=== PATIENT | male | born 1945 | race Caucasian/White ===

== ENCOUNTER 2022-08-05 09:14 | Emergency (ER) | payer SELFPAY ==
[2022-08-05] MEDS ORDERED: Acetaminophen 500 MG TAB ONE (09:31)
[2022-08-05 09:48] LABS: #Basophils 0.1 thou/uL (0.0-0.2); #Eosinphils 0.1 thou/uL (0.0-0.7); #Monocytes 1.1 thou/uL (0.11-0.59); %Basophils 0.6 % (0.0-1.0); %Eosinophils 0.8 % (0.0-10.0); %Lymphocytes 6.6 % (21.0-51.0); %Monocytes 7.4 % (0.0-10.0); %Neutrophils 84.6 % (42.0-75.0); Hemoglobin 13.8 g/dL (14.0-18.0); Mean Corpuscular HGB CONC 31.9 g/dL (32.0-36.0); Mean Corpuscular Hemoglobin 27.9 pg (27.0-31.0); Mean Corpuscular Volume 87.7 fl (78.0-98.0); Mean Platelet Volume 6.2 fL (7.4-10.4); Platelet Count 308 10x3/uL (130-400); RBC Distribution Width 13.8 % (11.5-14.5); Red Blood Cell (RBC) Count 4.94 mill/uL (4.70-6.10); White Blood Cell (WBC) Count 15.3 10x3/uL (4.8-10.8)
[2022-08-05 10:06] LABS: Anion Gap 17 mmol/L (10-20); BUN (Urea Nitrogen) 25 mg/dL (8.4-25.7); Calc. Creatinine Clearance 0 mL/min (70-130); Calcium 10.3 mg/dL (7.8-10.44); Carbon Dioxide 28 mmol/L (23-31); Chloride 94 mmol/L (98-107); Estimated GFR 40; Glucose 235 mg/dL (83-110); Potassium 5.1 mmol/L (3.5-5.1); Sodium 134 mmol/L (136-145)
[2022-08-05] MEDS ORDERED: Lidocaine 1% PF 5 ML VIAL ONE ×2 (10:15→10:32)
[2022-08-05] MEDS ORDERED: cefTRIAXone\\ROCEPHIN 2 GM VIAL ONE (10:54)
[2022-08-05] MEDS ORDERED: Sodium Chloride 0.9% 100 ML ONE (10:54)
[2022-08-05] MEDS ORDERED: Sodium Chloride 0.9% 250 ML 250 ML ONE (11:13)
[2022-08-05] MEDS ORDERED: Vancomycin 1 GM VIAL ONE (11:13)
[2022-08-05] MEDS ORDERED: Morphine 4 MG/ML VIAL ONE (12:30)
[2022-08-05 14:31] LABS: Synovial Fluid, Uric Acid 7.1 mg/dL (Not Available)
[2022-08-05 14:45] LABS: RBC Count-Automated (BF) 73282 /cu.mm; WBC/Nucleated-Auto (BF) 23891 /cu.mm
[2022-08-05 14:47] LABS: BF Color Red; Body Fluid Source Synovial Fluid; Clarity Cloudy/Turbid (Clear); Tube # EDTA
[2022-08-05 14:48] LABS: BF Segmented Neutrophils 83 %; Cell Count Non Hematic 13 %; Lymphocytes 4 %
[2022-08-07 00:59] LABS: Fluid, Protein 5.1 g/dL (Not Available)
== END 2022-08-05 12:41 | disposition short-term general hospital (02) ==
LOC: MADERS 09:14
DX: M25.561 Pain in right knee (principal); M25.461 Effusion, right knee; I25.2 Old myocardial infarction; J44.9 Chronic obstructive pulmonary disease, unspecified; I50.9 Heart failure, unspecified; E11.9 Type 2 diabetes mellitus without complications; Z86.73 Personal history of transient ischemic attack (TIA), and cerebral infarction without residual deficits
CPT/HCPCS: 20610; 36415; 80048; 82945; 83605; 84157; 84550; 84560; 85025; 85060; 85652; 86140; 87040; 87070; 87205; 89051; 89060; 96365; 96367; 96375; J0696; J2270; J3370; J3490; J7050

== ENCOUNTER 2022-08-20 18:34 | Inpatient (IN) | payer MEDICARE, OTHER ==
[2022-08-20] MEDS ORDERED: Lantus 1000 UNITS/10 ML VIAL SC SCH (21:30)
[2022-08-20] MEDS ORDERED: Apixaban 5 MG TAB PO SCH (21:30)
[2022-08-20] MEDS: HYDROcodone/Acetaminophen 7.5/325 mg Tablet PO PRN (21:52)
[2022-08-20] MEDS ORDERED: DULoxetine 30 MG CAP PO SCH (22:00)
[2022-08-20] MEDS ORDERED: HumaLOG 300 UNITS/3 ML VIAL SC SCH (22:00)
[2022-08-21] MEDS ORDERED: Lantiseptic Ointment 130 GM JAR TOP PRN (00:58)
[2022-08-21] MEDS ORDERED: Clotrimazole 1% Cream 15 GM TUBE TOP PRN (01:00)
[2022-08-21] MEDS ORDERED: HumaLOG 300 UNITS/3 ML VIAL SC SCH (09:00)
[2022-08-21] MEDS: Apixaban 5 MG TAB PO SCH ×2 (09:34→20:43)
[2022-08-21] MEDS: Aspirin 81 mg Enteric Coated Tablet PO SCH (09:34)
[2022-08-21] MEDS: Spironolactone 25 MG TAB PO SCH (09:34)
[2022-08-21] MEDS: Colchicine 0.6 MG TAB PO SCH (09:34)
[2022-08-21] MEDS: Furosemide 20 MG TAB PO SCH ×2 (09:34→14:34)
[2022-08-21] MEDS: Tamsulosin HCl 0.4 MG CAP PO SCH (09:35)
[2022-08-21] MEDS: Lantiseptic Ointment 130 GM JAR TOP SCH ×2 (09:35→20:46)
[2022-08-21] MEDS: Amiodarone 200 MG TAB PO SCH (09:35)
[2022-08-21] MEDS: Empagliflozin 25 MG TAB PO SCH (09:35)
[2022-08-21] MEDS: Clotrimazole 1% Cream 15 GM TUBE TOP SCH ×2 (09:36→20:46)
[2022-08-21] MEDS: LIRAGLUTIDE 0.6 MG/0.1 ML SC SCH (10:32)
[2022-08-21] MEDS: HYDROcodone/Acetaminophen 7.5/325 mg Tablet PO PRN ×2 (11:32→22:18)
[2022-08-21] MEDS ORDERED: DAPTOmycin 500 MG VIAL IVPB SCH (13:00)
[2022-08-21] MEDS: DAPTOmycin 500 MG in Sodium Chloride 0.9% 100 ML IVPB SCH (13:00)
[2022-08-21] MEDS: HumaLOG 300 UNITS/3 ML VIAL SC SCH (17:15)
[2022-08-21] MEDS: Lantus 1000 UNITS/10 ML VIAL SC SCH (20:44)
[2022-08-21] MEDS: DULoxetine 30 MG CAP PO SCH (20:44)
[2022-08-21] MEDS ORDERED: rOPINIRole HCl 0.25 MG TAB PO SCH (21:00)
[2022-08-22] MEDS: Empagliflozin 25 MG TAB PO SCH (08:19)
[2022-08-22] MEDS: HumaLOG 300 UNITS/3 ML VIAL SC SCH ×3 (08:19→16:43)
[2022-08-22] MEDS: Spironolactone 25 MG TAB PO SCH (08:19)
[2022-08-22] MEDS: Furosemide 20 MG TAB PO SCH ×2 (08:19→13:27)
[2022-08-22] MEDS: Tamsulosin HCl 0.4 MG CAP PO SCH (08:19)
[2022-08-22] MEDS: Apixaban 5 MG TAB PO SCH ×2 (08:19→20:46)
[2022-08-22] MEDS: Colchicine 0.6 MG TAB PO SCH (08:20)
[2022-08-22] MEDS: Aspirin 81 mg Enteric Coated Tablet PO SCH (08:20)
[2022-08-22] MEDS: Amiodarone 200 MG TAB PO SCH (08:20)
[2022-08-22] MEDS: Lantiseptic Ointment 130 GM JAR TOP SCH ×2 (08:21→20:48)
[2022-08-22] MEDS: Clotrimazole 1% Cream 15 GM TUBE TOP SCH ×2 (08:21→20:49)
[2022-08-22] MEDS: LIRAGLUTIDE 0.6 MG/0.1 ML SC SCH (08:22)
[2022-08-22] MEDS ORDERED: Ondansetron ODT 4 MG TAB PO SCH (09:45)
[2022-08-22] MEDS: HYDROcodone/Acetaminophen 7.5/325 mg Tablet PO PRN ×2 (09:57→20:50)
[2022-08-22 11:01] VITALS: BMI 31.6
[2022-08-22] MEDS: DAPTOmycin 500 MG in Sodium Chloride 0.9% 100 ML IVPB SCH (13:28)
[2022-08-22] MEDS: Acetaminophen 325 MG TAB PO PRN (17:30)
[2022-08-22] MEDS: Lantus 1000 UNITS/10 ML VIAL SC SCH (20:45)
[2022-08-22] MEDS: DULoxetine 30 MG CAP PO SCH (20:46)
[2022-08-22] MEDS: Melatonin 3 MG TAB PO PRN (20:46)
[2022-08-22] MEDS: rOPINIRole HCl 0.25 MG TAB PO SCH (20:46)
[2022-08-23] MEDS: Spironolactone 25 MG TAB PO SCH (08:04)
[2022-08-23] MEDS: Empagliflozin 25 MG TAB PO SCH (08:04)
[2022-08-23] MEDS: Furosemide 20 MG TAB PO SCH ×2 (08:04→13:08)
[2022-08-23] MEDS: Amiodarone 200 MG TAB PO SCH (08:04)
[2022-08-23] MEDS: Aspirin 81 mg Enteric Coated Tablet PO SCH (08:04)
[2022-08-23] MEDS: Tamsulosin HCl 0.4 MG CAP PO SCH (08:04)
[2022-08-23] MEDS: Clotrimazole 1% Cream 15 GM TUBE TOP SCH ×2 (08:05→20:44)
[2022-08-23] MEDS: Apixaban 5 MG TAB PO SCH ×2 (08:05→20:43)
[2022-08-23] MEDS: Lantiseptic Ointment 130 GM JAR TOP SCH ×2 (08:05→20:44)
[2022-08-23] MEDS: HumaLOG 300 UNITS/3 ML VIAL SC SCH ×3 (08:05→17:22)
[2022-08-23] MEDS: Colchicine 0.6 MG TAB PO SCH (08:05)
[2022-08-23] MEDS: LIRAGLUTIDE 0.6 MG/0.1 ML SC SCH (08:06)
[2022-08-23] MEDS: HYDROcodone/Acetaminophen 7.5/325 mg Tablet PO PRN ×2 (10:07→20:41)
[2022-08-23] MEDS: DAPTOmycin 500 MG in Sodium Chloride 0.9% 100 ML IVPB SCH (13:07)
[2022-08-23] MEDS: Acetaminophen 325 MG TAB PO PRN (17:20)
[2022-08-23] MEDS: rOPINIRole HCl 0.25 MG TAB PO SCH (20:41)
[2022-08-23] MEDS: DULoxetine 30 MG CAP PO SCH (20:42)
[2022-08-23] MEDS: Melatonin 3 MG TAB PO PRN (20:43)
[2022-08-23] MEDS: Lantus 1000 UNITS/10 ML VIAL SC SCH (20:44)
[2022-08-24 05:16] LABS: Platelet Count 212 10x3/uL (130-400)
[2022-08-24] MEDS: Aspirin 81 mg Enteric Coated Tablet PO SCH (08:34)
[2022-08-24] MEDS: Apixaban 5 MG TAB PO SCH ×2 (08:34→21:02)
[2022-08-24] MEDS: Colchicine 0.6 MG TAB PO SCH (08:34)
[2022-08-24] MEDS: Empagliflozin 25 MG TAB PO SCH (08:34)
[2022-08-24] MEDS: Spironolactone 25 MG TAB PO SCH (08:34)
[2022-08-24] MEDS: Tamsulosin HCl 0.4 MG CAP PO SCH (08:35)
[2022-08-24] MEDS: Amiodarone 200 MG TAB PO SCH (08:35)
[2022-08-24] MEDS: Furosemide 20 MG TAB PO SCH ×2 (08:35→14:36)
[2022-08-24] MEDS: HYDROcodone/Acetaminophen 7.5/325 mg Tablet PO PRN ×2 (08:36→21:03)
[2022-08-24] MEDS: HumaLOG 300 UNITS/3 ML VIAL SC SCH ×3 (08:42→17:31)
[2022-08-24] MEDS: LIRAGLUTIDE 0.6 MG/0.1 ML SC SCH (11:07)
[2022-08-24] MEDS: Clotrimazole 1% Cream 15 GM TUBE TOP SCH ×2 (11:10→21:04)
[2022-08-24] MEDS: Lantiseptic Ointment 130 GM JAR TOP SCH ×2 (11:10→21:04)
[2022-08-24] MEDS: Acetaminophen 325 MG TAB PO PRN (12:46)
[2022-08-24] MEDS: DAPTOmycin 500 MG in Sodium Chloride 0.9% 100 ML IVPB SCH (16:31)
[2022-08-24] MEDS: Lantus 1000 UNITS/10 ML VIAL SC SCH (20:59)
[2022-08-24] MEDS: DULoxetine 30 MG CAP PO SCH (21:02)
[2022-08-24] MEDS: Melatonin 3 MG TAB PO PRN (21:02)
[2022-08-24] MEDS: rOPINIRole HCl 0.25 MG TAB PO SCH (21:02)
[2022-08-24] MEDS: Senokot S 8.6-50 MG TAB PO SCH (21:02)
[2022-08-24] MEDS ORDERED: Fluconazole 100 MG TAB PO SCH (22:45)
[2022-08-25] MEDS: HumaLOG 300 UNITS/3 ML VIAL SC SCH ×3 (08:43→17:09)
[2022-08-25] MEDS: Spironolactone 25 MG TAB PO SCH (08:44)
[2022-08-25] MEDS: Senokot S 8.6-50 MG TAB PO SCH ×2 (08:44→21:31)
[2022-08-25] MEDS: Furosemide 20 MG TAB PO SCH ×2 (08:44→13:40)
[2022-08-25] MEDS: Fluconazole 100 MG TAB PO SCH (08:45)
[2022-08-25] MEDS: Tamsulosin HCl 0.4 MG CAP PO SCH (08:45)
[2022-08-25] MEDS: Aspirin 81 mg Enteric Coated Tablet PO SCH (08:45)
[2022-08-25] MEDS: Empagliflozin 25 MG TAB PO SCH (08:45)
[2022-08-25] MEDS: Amiodarone 200 MG TAB PO SCH (08:45)
[2022-08-25] MEDS: Colchicine 0.6 MG TAB PO SCH (08:45)
[2022-08-25] MEDS: Apixaban 5 MG TAB PO SCH ×2 (08:46→21:31)
[2022-08-25] MEDS: Clotrimazole 1% Cream 15 GM TUBE TOP SCH ×2 (08:47→21:34)
[2022-08-25] MEDS: Lantiseptic Ointment 130 GM JAR TOP SCH ×2 (08:47→21:35)
[2022-08-25] MEDS: LIRAGLUTIDE 0.6 MG/0.1 ML SC SCH (08:48)
[2022-08-25] MEDS: HYDROcodone/Acetaminophen 7.5/325 mg Tablet PO PRN ×2 (08:56→21:33)
[2022-08-25] MEDS: DAPTOmycin 500 MG in Sodium Chloride 0.9% 100 ML IVPB SCH (12:25)
[2022-08-25] MEDS: ALKA SELTZER PO PRN (17:00)
[2022-08-25] MEDS ORDERED: Fluconazole 100 MG TAB PO SCH (21:00)
[2022-08-25] MEDS: rOPINIRole HCl 0.25 MG TAB PO SCH (21:31)
[2022-08-25] MEDS: DULoxetine 30 MG CAP PO SCH (21:31)
[2022-08-25] MEDS: Melatonin 3 MG TAB PO PRN (21:31)
[2022-08-25] MEDS: Lantus 1000 UNITS/10 ML VIAL SC SCH (21:32)
[2022-08-26] MEDS: Aspirin 81 mg Enteric Coated Tablet PO SCH (08:21)
[2022-08-26] MEDS: Senokot S 8.6-50 MG TAB PO SCH ×2 (08:21→21:08)
[2022-08-26] MEDS: Amiodarone 200 MG TAB PO SCH (08:21)
[2022-08-26] MEDS: Apixaban 5 MG TAB PO SCH ×2 (08:22→20:09)
[2022-08-26] MEDS: Spironolactone 25 MG TAB PO SCH (08:22)
[2022-08-26] MEDS: Fluconazole 100 MG TAB PO SCH (08:22)
[2022-08-26] MEDS: Tamsulosin HCl 0.4 MG CAP PO SCH (08:22)
[2022-08-26] MEDS: Colchicine 0.6 MG TAB PO SCH (08:23)
[2022-08-26] MEDS: HumaLOG 300 UNITS/3 ML VIAL SC SCH ×3 (08:24→17:01)
[2022-08-26] MEDS: Empagliflozin 25 MG TAB PO SCH (08:24)
[2022-08-26] MEDS: Furosemide 20 MG TAB PO SCH ×2 (08:25→13:52)
[2022-08-26] MEDS: LIRAGLUTIDE 0.6 MG/0.1 ML SC SCH (08:26)
[2022-08-26] MEDS: Clotrimazole 1% Cream 15 GM TUBE TOP SCH ×2 (08:27→20:09)
[2022-08-26] MEDS: Lantiseptic Ointment 130 GM JAR TOP SCH ×2 (08:28→20:09)
[2022-08-26] MEDS: DAPTOmycin 500 MG in Sodium Chloride 0.9% 100 ML IVPB SCH (12:06)
[2022-08-26] MEDS: rOPINIRole HCl 0.25 MG TAB PO SCH (20:08)
[2022-08-26] MEDS: DULoxetine 30 MG CAP PO SCH (20:08)
[2022-08-26] MEDS: Melatonin 3 MG TAB PO PRN (20:09)
[2022-08-26] MEDS: HYDROcodone/Acetaminophen 7.5/325 mg Tablet PO PRN (20:10)
[2022-08-26] MEDS: Lantus 1000 UNITS/10 ML VIAL SC SCH (21:12)
[2022-08-27] MEDS: HumaLOG 300 UNITS/3 ML VIAL SC SCH ×3 (08:11→17:18)
[2022-08-27] MEDS: Amiodarone 200 MG TAB PO SCH (08:13)
[2022-08-27] MEDS: Apixaban 5 MG TAB PO SCH ×2 (08:13→21:10)
[2022-08-27] MEDS: Tamsulosin HCl 0.4 MG CAP PO SCH (08:13)
[2022-08-27] MEDS: Fluconazole 100 MG TAB PO SCH (08:13)
[2022-08-27] MEDS: Spironolactone 25 MG TAB PO SCH (08:13)
[2022-08-27] MEDS: Colchicine 0.6 MG TAB PO SCH (08:14)
[2022-08-27] MEDS: Aspirin 81 mg Enteric Coated Tablet PO SCH (08:14)
[2022-08-27] MEDS: Furosemide 20 MG TAB PO SCH ×2 (08:14→13:36)
[2022-08-27] MEDS: Empagliflozin 25 MG TAB PO SCH (08:15)
[2022-08-27] MEDS: LIRAGLUTIDE 0.6 MG/0.1 ML SC SCH (08:16)
[2022-08-27] MEDS: Lantiseptic Ointment 130 GM JAR TOP SCH ×2 (08:17→21:11)
[2022-08-27] MEDS: Clotrimazole 1% Cream 15 GM TUBE TOP SCH ×2 (08:17→21:12)
[2022-08-27] MEDS: Senokot S 8.6-50 MG TAB PO SCH ×2 (08:25→21:10)
[2022-08-27] MEDS: DAPTOmycin 500 MG in Sodium Chloride 0.9% 100 ML IVPB SCH (12:37)
[2022-08-27] MEDS: HYDROcodone/Acetaminophen 7.5/325 mg Tablet PO PRN ×2 (13:36→21:09)
[2022-08-27] MEDS: rOPINIRole HCl 0.25 MG TAB PO SCH (21:08)
[2022-08-27] MEDS: DULoxetine 30 MG CAP PO SCH (21:10)
[2022-08-27] MEDS: Lantus 1000 UNITS/10 ML VIAL SC SCH (21:10)
[2022-08-27] MEDS: Melatonin 3 MG TAB PO PRN (21:10)
[2022-08-28] MEDS: Colchicine 0.6 MG TAB PO SCH (08:08)
[2022-08-28] MEDS: Amiodarone 200 MG TAB PO SCH (08:09)
[2022-08-28] MEDS: Senokot S 8.6-50 MG TAB PO SCH ×2 (08:09→20:37)
[2022-08-28] MEDS: Aspirin 81 mg Enteric Coated Tablet PO SCH (08:09)
[2022-08-28] MEDS: Tamsulosin HCl 0.4 MG CAP PO SCH (08:09)
[2022-08-28] MEDS: Empagliflozin 10 MG TAB PO SCH (08:09)
[2022-08-28] MEDS: Furosemide 20 MG TAB PO SCH ×2 (08:09→13:32)
[2022-08-28] MEDS: Apixaban 5 MG TAB PO SCH ×2 (08:09→20:37)
[2022-08-28] MEDS: Spironolactone 25 MG TAB PO SCH (08:09)
[2022-08-28] MEDS: Fluconazole 100 MG TAB PO SCH (08:10)
[2022-08-28] MEDS: HumaLOG 300 UNITS/3 ML VIAL SC SCH ×3 (08:10→17:08)
[2022-08-28] MEDS: Clotrimazole 1% Cream 15 GM TUBE TOP SCH ×2 (08:10→20:38)
[2022-08-28] MEDS: Lantiseptic Ointment 130 GM JAR TOP SCH ×2 (08:11→20:38)
[2022-08-28] MEDS: LIRAGLUTIDE 0.6 MG/0.1 ML SC SCH (08:11)
[2022-08-28] MEDS: Ondansetron ODT 4 MG TAB PO PRN (08:25)
[2022-08-28] MEDS: Acetaminophen 325 MG TAB PO PRN (08:25)
[2022-08-28] MEDS: DULoxetine 30 MG CAP PO SCH (20:36)
[2022-08-28] MEDS: rOPINIRole HCl 0.25 MG TAB PO SCH (20:36)
[2022-08-28] MEDS: HYDROcodone/Acetaminophen 7.5/325 mg Tablet PO PRN (20:37)
[2022-08-28] MEDS: Melatonin 3 MG TAB PO PRN (20:37)
[2022-08-28] MEDS: Lantus 1000 UNITS/10 ML VIAL SC SCH (20:47)
[2022-08-28] MEDS ORDERED: Atorvastatin Calcium 10 MG TAB PO SCH (21:00)
[2022-08-29 07:14] VITALS: TEMP 98.9
[2022-08-29] MEDS: Spironolactone 25 MG TAB PO SCH (07:58)
[2022-08-29] MEDS: Acetaminophen 325 MG TAB PO PRN (07:58)
[2022-08-29] MEDS: Senokot S 8.6-50 MG TAB PO SCH (07:58)
[2022-08-29] MEDS: Apixaban 5 MG TAB PO SCH (07:59)
[2022-08-29] MEDS: Colchicine 0.6 MG TAB PO SCH (07:59)
[2022-08-29] MEDS: Tamsulosin HCl 0.4 MG CAP PO SCH (07:59)
[2022-08-29] MEDS: Empagliflozin 10 MG TAB PO SCH (08:00)
[2022-08-29] MEDS: Amiodarone 200 MG TAB PO SCH (08:00)
[2022-08-29] MEDS: Aspirin 81 mg Enteric Coated Tablet PO SCH (08:00)
[2022-08-29] MEDS: HumaLOG 300 UNITS/3 ML VIAL SC SCH (08:00)
[2022-08-29] MEDS: Fluconazole 100 MG TAB PO SCH (08:00)
[2022-08-29] MEDS: Clotrimazole 1% Cream 15 GM TUBE TOP SCH (08:01)
[2022-08-29] MEDS: LIRAGLUTIDE 0.6 MG/0.1 ML SC SCH (08:01)
[2022-08-29] MEDS: Furosemide 20 MG TAB PO SCH (08:02)
[2022-08-29] MEDS: Ondansetron ODT 4 MG TAB PO PRN (10:48)
[2022-08-29] MEDS: HYDROcodone/Acetaminophen 7.5/325 mg Tablet PO PRN (10:48)
[2022-08-29] MEDS: ALKA SELTZER PO PRN (10:49)
[2022-08-29] MEDS: Lantiseptic Ointment 130 GM JAR TOP SCH (11:12)
[2022-08-29 11:33] VITALS: BP 127/81
== END 2022-08-29 13:30 | disposition home or self-care (01) | DRG 549 ==
LOC: MADMS 19:45
PROVIDERS: ADMIT Family Medicine; ATTEND Family Medicine
DX: M00.061 Staphylococcal arthritis, right knee (principal); I13.0 Hypertensive heart and chronic kidney disease with heart failure and stage 1 through stage 4 chronic kidney disease, or unspecified chronic kidney disease; R53.1 Weakness; J44.9 Chronic obstructive pulmonary disease, unspecified; I25.10 Atherosclerotic heart disease of native coronary artery without angina pectoris; I50.9 Heart failure, unspecified; E66.9 Obesity, unspecified; G89.4 Chronic pain syndrome; L89.152 Pressure ulcer of sacral region, stage 2; G25.81 Restless legs syndrome; E11.22 Type 2 diabetes mellitus with diabetic chronic kidney disease; N18.31 Chronic kidney disease, stage 3a; I48.0 Paroxysmal atrial fibrillation; B37.2 Candidiasis of skin and nail; Z98.890 Other specified postprocedural states; Z79.01 Long term (current) use of anticoagulants; Z79.82 Long term (current) use of aspirin; Z79.4 Long term (current) use of insulin; Z79.899 Other long term (current) drug therapy; Z95.1 Presence of aortocoronary bypass graft; Z68.31 Body mass index [BMI] 31.0-31.9, adult
CPT/HCPCS: 36416; 85014; 85018; 85049; 87811; J0878; J1815; J3490; Q0162

== ENCOUNTER 2023-08-02 13:54 | Emergency (ER) | payer MEDICARE, OTHER ==
[2023-08-02 15:15] LABS: #Basophils 0.1 thou/uL (0.0-0.2); #Eosinphils 0.1 thou/uL (0.0-0.7); #Lymphocytes 1.1 thou/uL (1.20-3.40); #Monocytes 0.6 thou/uL (0.11-0.59); #Neutrophils 5.1 thou/uL (1.40-6.50); %Basophils 0.8 % (0.0-1.0); %Lymphocytes 15.6 % (21.0-51.0); %Monocytes 8.6 % (0.0-10.0); Hematocrit 48.1 % (42.0-52.0); Hemoglobin 14.2 g/dL (14.0-18.0); Mean Corpuscular HGB CONC 29.5 g/dL (32.0-36.0); Mean Corpuscular Hemoglobin 28.4 pg (27.0-31.0); Mean Corpuscular Volume 96.5 fl (78.0-98.0); Mean Platelet Volume 9.6 fL (7.4-10.4); Platelet Count 114 10x3/uL (130-400); RBC Distribution Width 15.2 % (11.5-14.5); Red Blood Cell (RBC) Count 4.99 mill/uL (4.70-6.10)
[2023-08-02 15:16] LABS: ALT (SGPT) 37 U/L (8-55); AST (SGOT) 28 U/L (5-34); Albumin 3.7 g/dL (3.4-4.8); Alkaline Phosphatase 122 U/L (40-110); Anion Gap 16 mmol/L (10-20); BUN (Urea Nitrogen) 17 mg/dL (8.4-25.7); Bilirubin, Total 0.6 mg/dL (0.2-1.2); Calc. Creatinine Clearance 0 mL/min (70-130); Calcium 9.6 mg/dL (7.8-10.44); Carbon Dioxide 29 mmol/L (23-31); Chloride 101 mmol/L (98-107); Estimated GFR 43; Globulin 2.9 g/dL (2.4-3.5); Glucose 150 mg/dL (83-110); Potassium 4.3 mmol/L (3.5-5.1); Protein, Total 6.6 g/dL (5.8-8.1); Sodium 142 mmol/L (136-145)
[2023-08-02 15:21] LABS: Platelet Adequacy Comment Appears Decreased
== END 2023-08-02 15:35 | disposition short-term general hospital (02) ==
LOC: MADERS 13:54
DX: M79.89 Other specified soft tissue disorders (principal); J44.9 Chronic obstructive pulmonary disease, unspecified; I50.9 Heart failure, unspecified; E11.9 Type 2 diabetes mellitus without complications; Z79.4 Long term (current) use of insulin; Z79.899 Other long term (current) drug therapy
CPT/HCPCS: 36415; 71045; 80053; 83880; 85025; 85379